=== PATIENT | male | born 1950 | race Caucasian/White ===

== ENCOUNTER 2020-01-31 18:13 | Emergency (ER) | payer OTHER ==
[~2020-01-31] VITALS: Ht 170.2 cm; Wt 99.3 kg
[~2020-01-31 18:13] MED LIST: ACCUPRIL40 MG PO; ADVIL PM CAPLE1 EACH PO; AMARYL4 MG PO; AMLODIPINE BESY10 MG PO; ASPIR 8181 MG PO; CENTRUM SILVER1 EAC2 PO; FISH OIL 1,001000 M2 PO; FOLGARD TABLET1 EAC1 PO; LEVOTHYROXINE0.05 MG PO; METFORMIN HCL500 MG PO; MOBIC15 MG PO; NIASPAN 500 MG500 M1 PO; SIMVASTATIN40 MG PO; TENORMIN50 MG PO; VITAMINC500 PO
[2020-01-31] MEDS ORDERED: VALACYCLOVIR1000 MG PO (19:38)
[2020-01-31] MEDS ORDERED: COZAAR 25 MG TA25 M1 PO (19:39)
[2020-01-31] MEDS ORDERED: PROTONIX40 M2 PO (19:39)
[2020-01-31] MEDS ORDERED: LEVO-T50 MCG PO (19:40)
[2020-01-31] MEDS ORDERED: GLIMEPIRIDE4 MG PO (19:40)
[2020-01-31] MEDS ORDERED: ELIQUIS5 MG PO (19:41)
[2020-01-31] MEDS ORDERED: METFORMIN HCL500 M3 PO (19:41)
[2020-01-31] MEDS ORDERED: CARVEDILOL12.5 MG PO (19:41)
[2020-01-31] MEDS ORDERED: ZOLPIDEM TARTRA10 MG PO (19:42)
[2020-01-31] MEDS ORDERED: SIMVASTATIN80 MG PO (19:42)
[2020-01-31] MEDS ORDERED: VITAMIN D21250 MC1 PO (19:43)
[2020-01-31] MEDS ORDERED: MELOXICAM7.5 MG PO (19:43)
[2020-01-31] MEDS ORDERED: AMLODIPINE BESY10 MG PO (19:44)
[2020-01-31 19:53] LABS: ABSOLUTE BASOPHILS 0.1 thou/uL (0.0-0.2); ABSOLUTE LYMPHOCYTES 0.8 thou/uL (0.8-5.3); ABSOLUTE MONOCYTES 0.9 thou/uL (0.0-1.2); BASOPHILS 0.7 %; EOSINOPHILS 0.3 %; HEMATOCRIT 34.1 % (42.0-52.0); HEMOGLOBIN 11.7 gm/dL (14.0-18.0); LYMPHOCYTES 7.8 %; MCH 30.7 pg (26.0-34.0); MCHC 34.2 g/dL (28.0-37.0); MCV 89.6 fL (80.0-100.0); MONOCYTES 9.4 %; MPV 7.7 fl. (7.2-11.1); NUCLEATED RBCS 0 /100WBC; PLATELET COUNT* 230 thou/uL (150-400); POLYS 81.8 %; RBC 3.81 mil/uL (4.50-6.00); RDW-CV 13.3 % (10.5-14.5); WBC 9.8 thou/uL (4.0-11.0)
[2020-01-31 20:02] LABS: CALCIUM 9.2 mg/dL (8.5-10.1); CREATININE 4.2 mg/dL (0.6-1.3)
[2020-01-31 20:06] LABS: ALBUMIN 3.8 g/dL (3.4-5.0); TOTAL BILIRUBIN 0.7 mg/dL (<0.1-1.0); TOTAL PROTEIN 7.7 g/dL (6.4-8.2)
[2020-02-01 00:35] VITALS: BP 106/56
== END 2020-02-01 00:35 | disposition short-term general hospital (02) ==
LOC: M.ERS 18:13
PROVIDERS: Emergency Medicine
DX: N17.9 Acute kidney failure, unspecified (principal); N20.0 Calculus of kidney; I10 Essential (primary) hypertension; Z20.828 Contact with and (suspected) exposure to other viral communicable diseases; Z87.442 Personal history of urinary calculi; Z96.652 Presence of left artificial knee joint